=== PATIENT | male | born 1945 | race Two or more races ===

== ENCOUNTER 2022-05-08 09:58 | Emergency (ER) | payer OTHER ==
[~2022-05-08] VITALS: Ht 147.3 cm; Wt 52.2 kg
[2022-05-08] MEDS ORDERED: AMBIEN5 MG (10:26)
[2022-05-08] MEDS ORDERED: ZOLOFT20 MG/1 ML (10:26)
[2022-05-08] MEDS ORDERED: INBRIJA42 M1 (10:27)
== END 2022-05-08 12:36 | disposition left against medical advice (07) ==
LOC: ER 09:58
DX: Z53.21 Procedure and treatment not carried out due to patient leaving prior to being seen by health care provider (principal)